=== PATIENT | male | born 1975 | race African-American/Black ===

== ENCOUNTER 2022-03-26 22:14 | Emergency (ER) | payer OTHER ==
[~2022-03-26] VITALS: Ht 188 cm; Wt 100.0 kg
[2022-03-26 22:46] VITALS: BP 142/85
== END 2022-03-27 00:57 | disposition left against medical advice (07) ==
LOC: ER 22:14
DX: Z53.21 Procedure and treatment not carried out due to patient leaving prior to being seen by health care provider (principal)